=== PATIENT | male | born 1995 | race Caucasian/White ===

== ENCOUNTER → 2018-01-20 | Outpatient (REF) ==
--- NOTE | 2018-01-20 09:35 | Diagnostic Imaging Report ---
INDICATION: Pain. COMPARISON: None. FINDINGS: Three views of the right shoulder are obtained. No acute fracture, malalignment or osseous destructive process is seen. Glenohumeral and acromioclavicular joints appear unremarkable. IMPRESSION: Negative right shoulder. Dictated by: Dictated on workstation # [id number]
== END | disposition home or self-care (01) ==
LOC: MERGE 09:10 → RAD 09:10
PROVIDERS: ATTEND Nurse Practitioner Family
CPT/HCPCS: 73030